=== PATIENT | male | born 1995 | race Caucasian/White ===

== ENCOUNTER 2017-01-28 18:34 | Emergency (ER) | payer OTHER ==
[~2017-01-28] VITALS: Ht 177.8 cm; Wt 151.0 kg
[~2017-01-28 18:34] MED LIST: AMO500 PO; IBUP800T25 PO; MECL12.574 PO; NPH10OT LEFT EAR
[2017-01-28 18:40] VITALS: Ht 177.8 cm; Wt 151.0 kg
[2017-01-28] MEDS ORDERED: BACI28.34 TOP (19:57)
--- NOTE | 2017-01-28 21:15 | ERD ---
ER Documentation Chief Complaint Date/Time DATE: 01/28/17 TIME: 21:08 Chief Complaint ripped foreskin HPI This patient is a 21-year-old male presenting to the emergency department with complaints of ripped foreskin after rough intercourse today. The patient states he was having intercourse with his girlfriend when he removed his penis and then tried to reinsert it, but miscalculated it causing trauma to the underside of the penis near the frenulum. Bleeding occurred after but it was well controlled. He reports mild pain associated with the laceration. He denies fevers, chills, other injuries, or other symptoms. ROS All systems reviewed and are negative except as per history of present illness. Medications Home Meds Active Scripts Bacitracin* (Bacitracin Zinc Oint*) 28.35 Gm Oint, 1 APPLIC TOP BID for 5 Days, #1 TUB APPLI TO Prov:JAZMIN PAYTON PA-C 01/28/17 Ibuprofen* (Motrin*) 800 Mg Tab, 800 MG PO Q6, #30 TAB take with food Prov:RYAN GUTIERREZ PA-C 03/25/16 Meclizine Hcl* (Antivert*) 12.5 Mg Tab, 12.5 MG PO Q6H Y for DIZZINESS, #20 TAB Prov:RYAN GUTIERREZ PA-C 03/25/16 Neomycin/Polymyxin/Hydrocort* (Cortisporin* Otic) 10 Ml Susp, 4 DROP LEFT EAR QID for 7 Days, EA Prov:RYAN GUTIERREZ PA-C 03/25/16 Amoxicillin* (Amoxicillin*) 500 Mg Cap, 500 MG PO TID for 7 Days, CAP Prov:RYAN GUTIERREZ PA-C 03/25/16 Allergies Allergies: Coded Allergies: No Known Allergy (Unverified , 03/25/16) PMhx/Soc Medical and Surgical Hx: pt denies Medical Hx, pt denies Surgical Hx History of Surgery: No Anesthesia Reaction: No Hx Neurological Disorder: No Hx Respiratory Disorders: No Hx Cardiac Disorders: No Hx Psychiatric Problems: No Hx Miscellaneous Medical Probl: No Hx Alcohol Use: No Hx Substance Use: No Hx Tobacco Use: No Smoking Status: Never smoker Physical Exam Vitals Vital Signs Date Time Temp Pulse Resp B/P Pulse Ox O2 Delivery O2 Flow Rate FiO2 01/28/17 18:40 97.4 94 20 128/75 87 Physical Exam Const: Nontoxic, well-appearing male in no acute distress. Head: Atraumatic Eyes: Normal Conjunctiva ENT: Normal External Ears, Nose and Mouth. Neck: Full range of motion..~ No meningismus. Abd: Soft, non tender, non distended. Normal bowel sounds Exam: Scrotum: Normal, nontraumatic. Penis: There is a very small laceration measuring less than a centimeter to the dorsal surface of the lands penis near the frenulum. Bleeding is controlled. Discharge: None RN senior training and development rep: Adrian Skin: No petechiae or rashes Back: No midline or flank tenderness Ext: No cyanosis, or edema Neur: Awake and alert Psych: Normal Mood and Affect Procedures/MDM 21-year-old male presents to the emergency department with complaints of laceration to the underside of his penis after having rough intercourse with his female partner. On physical examination there is a very small less than 1 synovator laceration to the dorsal surface of the penis near the frenulum. Bleeding is controlled. I irrigated the area and cleaned with Betadine. Bacitracin ointment was applied. The patient was stable for outpatient management with a prescription for bacitracin. He was advised to have close follow-up with the primary care physician. I do not feel that laceration repair is indicated in the department as bleeding was very well controlled. Strict ER return precautions were discussed. Departure Diagnosis: Primary Impression: Laceration Condition: Fair Patient Instructions: Laceration, All Additional Instructions: Follow up with your PCP within the next 1-3 days for a repeat evaluation and a possible referral to a specialist, if required. Return the the emergency department immediately if symptoms worsen or change. If you have any questions regarding medications, ask your pharmacist or us before you leave. If any adverse reactions, occur while taking your medications, discontinue the treatment and return to the emergency department immediately. If any new or worsening symptoms, uncontrolled fevers, or other unexplained symptoms occur, return to the emergency department immediately. Take your medications as directed, and complete the entire course of treatment. JAZMIN PAYTON PA-C Jan 28, 2017 21:15
== END 2017-01-28 20:10 | disposition home or self-care (01) ==
LOC: FTE 18:34
DX: S31.21XA Laceration without foreign body of penis, initial encounter (principal); X58.XXXA Exposure to other specified factors, initial encounter; Y92.9 Unspecified place or not applicable
CPT/HCPCS: 99283